=== PATIENT | male | born 1990 | race African-American/Black ===

== ENCOUNTER 2019-08-01 14:14 | Inpatient (IN) | payer OTHER ==
[2019-08-01 14:56] VITALS: BMI 20.3
--- NOTE | 2019-08-01 15:35 | HP ---
CIWA Score - Admission Criteria [facility] Guidelines: Admission for Medically Managed Detox: Requires at least one of the followin. CIWA greater than 12 2. Seizures within the past 24 hours 3. Delirium tremens within the past 24 hours 4. Hallucinations within the past 24 hours 5. Acute intervention needed for co occurring medical disorder 6. Acute intervention needed for co occurring psychiatric disorder 7. Severe withdrawal that cannot be handled at a lower level of care (continued vomiting, continued diarrhea, abnormal vital signs) requiring intravenous medication and/or fluids 8. Admission ROS [facility] Chief Complaint: meth rehab Allergies/Adverse Reactions: Allergies Allergy/AdvReac Type Severity Reaction Status Date / Time No Known Drug Allergies Allergy Verified 08/01/19 14:44 History of Present Illness: patient is a 28 yo M with a PMHx of insomnia, depression, anxiety, presenting for IV, inhaled crystal meth rehab. last use 1 week ago. says he has been using meth for 3 years. Says he uses 40 dollars every time he uses. He does not use it often. He says around every other week. Says he wants to quit. Denies other drug use except marijuana. Never did detox in the past. Unemployed. Lives with his father at an apartment. Exam Limitations: No Limitations - Ebola screening Have you traveled outside of the country in the last 21 days: No (N) Have you had contact with anyone from an Ebola affected area: No Do you have a fever: No - Review of Systems Constitutional: Loss of Appetite Respiratory: denies: Cough, Shortness of Breath Cardiac: denies: Chest Pain Patient History - Patient Medical History Hx Anemia: No Hx Asthma: Yes Hx Chronic Obstructive Pulmonary Disease (COPD): No Hx Cancer: No Hx Cardiac Disorders: No Hx Congestive Heart Failure: No Hx Hypertension: No Hx Hypercholesterolemia: No Hx Pacemaker: No HX Cerebrovascular Accident: No Hx Seizures: No Hx Dementia: No Hx Diabetes: No Hx Gastrointestinal Disorders: No Hx Liver Disease: No Hx Genitourinary Disorders: No Hx Sexually Transmitted Disorders: No Hx Renal Disease (ESRD): No Hx Thyroid Disease: No Hx Human Immunodeficiency Virus (HIV): No (Negative 2018) Hx Hepatitis C: No Hx Depression: Yes Hx Suicide Attempt: No (Denies suicidal ideation at this time) Hx Bipolar Disorder: No Hx Schizophrenia: No - Patient Surgical History Past Surgical History: No Hx Neurologic Surgery: No Hx Cataract Extraction: No Hx Cardiac Surgery: No Hx Lung Surgery: No Hx Breast Surgery: No Hx Breast Biopsy: No Hx Abdominal Surgery: No Hx Appendectomy: No Hx Cholecystectomy: No Hx Genitourinary Surgery: No Hx Section: No Hx Orthopedic Surgery: No Anesthesia Reaction: No - Smoking Cessation Smoking history: Current every day smoker Have you smoked in the past 12 months: Yes Aproximately how many cigarettes per day: 4 Hx Chewing Tobacco Use: No Initiated information on smoking cessation: Yes 'Breaking Loose' booklet given: 08/01/19 - Substances abused Alcohol Substance route: Oral Frequency: Daily Amount used: liquor- 1 pint, beer- 2 six pack Age of first use: 17 Date of last use: 07/28/19 Methamphetamine Other (specify): Crystal Meth Substance route: Injection Frequency: 1-2 times per week Amount used: $40-$60 Age of first use: 25 Date of last use: 08/01/19 Marijuana/Hashish Substance route: Smoking Frequency: Daily Amount used: $50 Age of first use: 12 Date of last use: 03/29/19 Other Other (specify): Ecstasy Substance route: Oral Frequency: 1-2 times per week Amount used: 2 pills Age of first use: 17 Date of last use: 03/26/19 Family Disease History - Family Disease History Family Disease History: Diabetes: Mother (HTN, DM), Heart Disease: Mother Admission Physical Exam BHS - Vital Signs Vital Signs: Vital Signs - 24 hr 08/01/19 14:52 Temperature 97.7 F Pulse Rate 76 Respiratory 20 Rate Blood Pressure 119/74 - Physical General Appearance: Yes: Within Normal Limits Respiratory: Yes: No Respiratory Distress, No Accessory Muscle Use Cardiology: Yes: Regular Rhythm, Regular Rate Abdominal: Yes: Normal Bowel Sounds, Non Tender, Soft Extremities: No: Swelling - Diagnostic (1) Methamphetamine abuse Current Visit: Yes Status: Acute Breathalyzer - Breathalyzer Breathalyzer: 0 Urine Drug Screen - Test Device Lot number: [id number] Expiration date: 04/27/21 - Control Is test valid?: Yes - Results Drug screen NEGATIVE: No Urine drug screen results: THC-Marijuana Inpatient Rehab Admission - Rehab Decision to Admit Inpatient rehab admission?: Yes - Initial Determination Are CD services needed?: Yes Free of communicable disease: Yes Not in need of hospitalization: Yes - Rehab Admission Criteria Previous failed treatment: No Poor recovery environment: No Comorbidities: No Lacks judgement: No Patient is meeting Inpatient Rehab admission criteria:: Yes
--- NOTE | 2019-08-01 15:55 | PN ---
Teaching Attending Note Name of Resident: Ajay Hager ATTENDING PHYSICIAN STATEMENT I saw and evaluated the patient. I reviewed the resident's note and discussed the case with the resident. I agree with the resident's findings and plan as documented. SUBJECTIVE: 28 yo with anxiety/depression here for IV, IH crystal meth use. Pt uses occ once- twice a week. Would like to stop use- here for rehab. Last use 1 week ago. Pt states he is not able to stay away from meth use. OBJECTIVE: Vital Signs - 24 hr 08/01/19 14:52 Temperature 97.7 F Pulse Rate 76 Respiratory 20 Rate Blood Pressure 119/74 alert and oriented non tremulous ASSESSMENT AND PLAN: Pt here for rehab from crystal meth use. prn meds
[2019-08-01] MEDS ORDERED: P-EPHED 60MG/TRIPROLIDI 2.5MG TABLET PO PRN (16:04)
[2019-08-01] MEDS ORDERED: MAG HYDROX/AL HYDROX/SIMETH 30 ML UNIT-DOSE CUP PO PRN (16:04)
[2019-08-01] MEDS ORDERED: guaiFENesin 200 MG/10 ML 10 ML UNIT-DOSE CUPS PO PRN (16:04)
[2019-08-01] MEDS ORDERED: NICOTINE POLACRILEX 2 MG GUM BC PRN (16:04)
[2019-08-01] MEDS ORDERED: IBUPROFEN 400 MG TABLET (FP) PO PRN (16:04)
[2019-08-01] MEDS ORDERED: MAGNESIUM CITRATE 300 ML BOTTLE PO PRN (16:04)
[2019-08-01] MEDS ORDERED: LOPERAMIDE HCL 2 MG CAPSULE PO PRN (16:04)
[2019-08-01] MEDS ORDERED: MAGNESIUM HYDROX 2400MG/30ML ORAL SUSPENSION 30 ML CUP PO PRN (16:04)
[2019-08-01] MEDS ORDERED: MENTHOL/PHENOL 1 EACH UD MM PRN (16:04)
[2019-08-01] MEDS ORDERED: ACETAMINOPHEN 325 MG TABLET (FP) PO PRN (16:04)
[2019-08-01] MEDS ORDERED: MELATONIN 5 MG TABLETS PO PRN (22:00)
[2019-08-01] MEDS ORDERED: THIAMINE HCL 100 MG TABLET (FP) PO SCH (22:00)
[2019-08-01 23:27] VITALS: BP 119/68; PULSE 66; TEMP 98.1
[2019-08-02] MEDS ORDERED: PRENATAL VITAMINS W/ FOLIC ACID TABLET (FP) PO SCH (10:00)
[2019-08-02 12:17] LABS: ALBUMIN 3.3 g/dl (3.4-5.0); BILIRUBIN,TOTAL 0.7 mg/dL (0.2-1); BLOOD UREA NITROGEN 9.5 mg/dL (7-18); CALCIUM 8.7 mg/dL (8.5-10.1); POTASSIUM 4.2 mmol/L (3.5-5.1); TOT PROT 5.8 g/dl (6.4-8.2)
[2019-08-02 12:18] LABS: HEMATOCRIT 39.2 % (35.4-49); HEMOGLOBIN 13.2 GM/dL (11.7-16.9); MCH 31.2 pg (25.7-33.7); MCHC 33.7 g/dl (32.0-35.9); MEAN CELL VOLUME 92.4 fl (80-96); MEAN PLT VOLUME 9.2 fl (7.5-11.1); PLATELET COUNT 165 K/MM3 (134-434); RBC 4.24 M/mm3 (4.00-5.60); WHITE BLOOD COUNT 5.9 K/mm3 (4.0-10.0)
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
--- NOTE | 2019-08-02 12:30 | EKG ---
Test Reason : Blood Pressure : / mmHG Vent. Rate : 066 BPM Atrial Rate : 066 BPM P-R Int : 134 ms QRS Dur : 076 ms QT Int : 376 ms P-R-T Axes : 075 082 064 degrees QTc Int : 394 ms NORMAL SINUS RHYTHM NORMAL ECG NO PREVIOUS ECGS AVAILABLE Confirmed by INGRID YANG MD ([id number]) on 08/02/2019 12:29:54 PM Referred By: Confirmed By:INGRID YANG MD
--- NOTE | 2019-08-02 14:40 | DS ---
[facility] Rehab Discharge Summary - [facility] Rehab Discharge Summary Admission Date: 08/01/19 Discharge Date: 08/02/19 - History Present History: Alcohol dependence, Cannabis dependence Additional Comments: Pt is a 28 y/o male admitted yesterday to rehab for disha and declining to stay. Prefers to go to outpatient program. Pertinent Past History: Asthma Mood disorder - Discharge Physical Exam Vital Signs: Vital Signs Temperature 98.1 F 08/01/19 17:35 Pulse Rate 66 08/01/19 17:35 Respiratory Rate 18 08/02/19 07:02 Blood Pressure 119/68 08/01/19 17:35 O2 Sat by Pulse Oximetry (%) Alert o x 3, nad,denies s/h/i Extremities:Full ROM,with steady gait. Declined further assessment. Pertinent Admission Physical Exam Findings: Laboratory Tests 08/02/19 08/02/19 08:40 08:40 WBC 5.9 RBC 4.24 Hgb 13.2 Hct 39.2 MCV 92.4 MCH 31.2 MCHC 33.7 RDW 13.0 Plt Count 165 MPV 9.2 Sodium 143 Potassium 4.2 Chloride 104 Carbon Dioxide 31 Anion Gap 8 BUN 9.5 Creatinine 1.0 Est GFR (CKD-EPI)AfAm 117.36 Est GFR (CKD-EPI)NonAf 101.26 Random Glucose 97 Calcium 8.7 Total Bilirubin 0.7 AST 9 L ALT 16 Alkaline Phosphatase 43 L Total Protein 5.8 L Albumin 3.3 L unremakable/Unchanged. - Treatment Discharge Condition: Discharge condition good Hospital Course: Pt declined to continue rehab treatment stating he wants to go to outpatient treatment. - Medication Discharge Medications: Ambulatory Orders NK [No Known Home Medication] 03/29/19 - Medication-Assisted Treatment (MAT) Medication-Assisted Treatment (MAT): No - Discharge Instructions Diet, activity, other medical instructions: Diet:regular Activity: oob,ad tena Other medical instructions:[facility] for primary care. - Follow-up Referral Minutes to complete discharge: 15 - AMA Did Patient Leave Against Medical Advice: Yes
[2019-08-02 17:28] LABS: URINE APPEARANCE CLEAR; URINE BILIRUBIN NEGATIVE (NEGATIVE); URINE COLOR YELLOW; URINE GLUCOSE (UA) NEGATIVE (NEGATIVE); URINE KETONE NEGATIVE (NEGATIVE); URINE LEUK ESTERASE NEGATIVE (NEGATIVE); URINE NITRITE NEGATIVE (NEGATIVE); URINE PROTEIN NEGATIVE (NEGATIVE); URINE UROBILINOGEN 0.2 mg/dL (0.2-1.0)
[2019-08-02] MEDS ORDERED: SUVOREXANT 10 MG TABLET PO PRN (22:00)
== END 2019-08-02 14:20 | disposition left against medical advice (07) | DRG 770 ==
LOC: YASAS 14:14 → Y5N 17:02
PROVIDERS: ADMIT Neuromusculoskeletal Medicine & OMM; ATTEND Neuromusculoskeletal Medicine & OMM
PROC: HZ42ZZZ Group Counseling for Substance Abuse Treatment, Cognitive-Behavioral (ICD-10-PCS; principal; 2019-08-01)
DX: F10.20 Alcohol dependence, uncomplicated (principal); F15.20 Other stimulant dependence, uncomplicated; F12.20 Cannabis dependence, uncomplicated; F17.210 Nicotine dependence, cigarettes, uncomplicated; F19.282 Other psychoactive substance dependence with psychoactive substance-induced sleep disorder; F19.24 Other psychoactive substance dependence with psychoactive substance-induced mood disorder; F31.9 Bipolar disorder, unspecified; J45.909 Unspecified asthma, uncomplicated
CPT/HCPCS: 36415; 80053; 81003; 85027; 86480; 86593; 93005; 93010

== ENCOUNTER 2020-10-30 13:48 | Emergency (ER) | payer OTHER ==
[2020-10-30 13:59] VITALS: BP 113/76; PULSE 83; BMI 20.5
[2020-10-30] MEDS ORDERED: KETOROLAC TROMETHAMINE 30 MG/1 ML VIAL IM ONE (14:25)
[2020-10-30] MEDS ORDERED: KETOROLAC TROMETHAMINE 30 MG/1 ML VIAL ONE (14:30)
== END 2020-10-30 14:44 | disposition home or self-care (01) ==
LOC: JER 13:48 → JERFT 13:48
PROC: 3E0233Z Introduction of Anti-inflammatory into Muscle, Percutaneous Approach (ICD-10-PCS; principal; 2020-10-30)
DX: K08.89 Other specified disorders of teeth and supporting structures (principal)
CPT/HCPCS: 99284-25

== ENCOUNTER 2020-12-30 14:19 | Emergency (ER) | payer OTHER ==
[2020-12-30 14:29] VITALS: BP 145/88; PULSE 70; BMI 20.5
[2020-12-30] MEDS ORDERED: KETOROLAC TROMETHAMINE 30 MG/1 ML VIAL IM ONE (14:41)
[2020-12-30] MEDS ORDERED: CLINDAMYCIN HCL 300 MG CAPSULE PO ONE (14:48)
[2020-12-30] MEDS ORDERED: CLINDAMYCIN HCL 150 MG CAPSULE (FP) ONE (15:00)
[2020-12-30] MEDS ORDERED: KETOROLAC TROMETHAMINE 30 MG/1 ML VIAL ONE (15:00)
== END 2020-12-30 15:14 | disposition home or self-care (01) ==
LOC: JERFT 14:19
PROC: 3E0233Z Introduction of Anti-inflammatory into Muscle, Percutaneous Approach (ICD-10-PCS; principal; 2020-12-30)
DX: K04.7 Periapical abscess without sinus (principal)
CPT/HCPCS: 99284-25

== ENCOUNTER 2021-02-05 09:10 | Emergency (ER) | payer OTHER ==
[2021-02-05 09:21] VITALS: BP 96/55; PULSE 79; TEMP 98; BMI 19.9
[2021-02-05] MEDS ORDERED: IBUPROFEN 600 MG TABLET (FP) PO ONE ×2 (10:04→10:27)
== END 2021-02-05 11:01 | disposition home or self-care (01) ==
LOC: JER 09:10
DX: S22.41XA Multiple fractures of ribs, right side, initial encounter for closed fracture (principal)
CPT/HCPCS: 71101-TC-RT-FY; 99283-25